=== PATIENT | female | born 1960 | race Caucasian/White ===

== ENCOUNTER 2022-09-05 10:43 | Day surgery (SDC) | payer BC ==
--- NOTE | 2022-09-05 09:40 | HP ---
DATE OF SURGERY: 09/05/2022 HISTORY OF PRESENT ILLNESS: The patient is a 62-year-old with last colonoscopy in 2012 had a polyp in the past, had follow up for polyps. No bloody stool. No change in bowel movements. No new pain. Family history no colon cancer. History of colitis in the father. She is need of follow up screening colonoscopy. PAST MEDICAL HISTORY: Urinary tract infections in the past. PAST SURGICAL HISTORY: Laparoscopic cholecystectomy. MEDICATIONS: Fish oil, Pravastatin, vitamin D3, aspirin. ALLERGIES: NKDA. FAMILY HISTORY: No colon cancer. History of colitis in the father. SOCIAL HISTORY: No smoking or alcohol abuse. REVIEW OF SYSTEMS: Fourteen systems reviewed. No chest pain or palpitations. Other systems negative or noncontributory as above and per preadmission questionnaire. PHYSICAL EXAMINATION: Weight 130 pounds. BMI 20.36. GENERAL: No acute distress. HEENT: Sclerae nonicteric. NECK: No JVD. CHEST: Equal excursion, nonlabored breathing. CVS: Regular rate and rhythm. ABDOMEN: Soft, nontender. EXTREMITIES: No edema or cyanosis. NEURO: Alert, oriented, moving extremities symmetrically. RECTAL: Deferred timed to endoscopy exam. PSYCH: Appropriate mood and affect. SKIN: Dry. IMPRESSION: History of polyps, in need of follow up screening. I feel the patient is a candidate. Risks and benefits explained in detail, risk of bleeding or infection, risk of bowel injury or perforation, risk of missed or nondiagnosis or incomplete exam possibly requiring barium enema, other studies or procedures, general risk of anesthesia or sedation, risk of bowel prep but not limited to, consent obtained. Will proceed with outpatient follow up screening colonoscopy.
[~2022-09-05 10:43] MED LIST: Lactated Ringers 1,000 ML IV SCH
[2022-09-05] MEDS ORDERED: Lactated Ringers 1,000 ML IV ONE (10:44)
[2022-09-05] MEDS ORDERED: Xylocaine-Mpf 2% 5 Ml Vial ONE (12:23)
[2022-09-05] MEDS ORDERED: Versed 2 MG/2 ML Injection ONE (12:23)
[2022-09-05] MEDS ORDERED: DIPRIVAN 200 MG/20 ML IV ONE ×2 (12:23→12:39)
[2022-09-05 13:43] VITALS: BP 123/70; PULSE 67; O2SAT 98
--- NOTE | 2022-09-05 15:15 | OP ---
SURGERY DATE/TIME: 09/05/2022 1225 PREOPERATIVE DIAGNOSIS: History of polyps, need for follow up screening colonoscopy. POSTOPERATIVE DIAGNOSES: 1) ASA Class II. 2) Small early polyp versus hyperplastic lesion. 3) Mild diverticulosis. 4) Withdrawal time approximately nine minutes. PROCEDURES: 1) Colonoscopy to cecum. 2) Hot biopsy removal polypectomy early polyp versus hyperplastic lesion transverse colon. 3) Hot biopsy polypectomy small early polyp versus hyperplastic lesion sigmoid colon x2. SURGEON: Dr. Casey Fuller. ANESTHESIA: MAC. ESTIMATED BLOOD LOSS: Minimal. INDICATIONS: As noted above. Risks and benefits explained in detail but not limited to and consent obtained. DESCRIPTION OF PROCEDURE AND FINDINGS: The patient is taken to the endoscopy room. MAC anesthesia induced. After official time out and no disagreement with planned procedure, digital rectal exam did not reveal any rectal masses. Video colonoscope inserted and passed up through the somewhat tortuous sigmoid, descending, transverse and ascending colon. With the external pressure the scope was able to be passed around to the cecum. Appendiceal orifice and ileocecal valve well visualized and photo documented. Prep overall was good except a little bit of liquidy stool irrigated as clear as possible. The scope is carefully withdrawn over the next nine minutes stopping in the transverse colon. Small early polyp versus hyperplastic lesion versus hyperplasia mucosa was biopsied with hot biopsy forceps. Good hemostasis noted. Scope pulled out the left colon. She had a few small diverticula, mild diverticulosis. Scope pulled back in the sigmoid colon. A couple small very early polyp versus hyperplastic lesion removed with hot biopsy forceps hot biopsy polypectomy. Good hemostasis noted. Otherwise no signs of any other large polyps, masses or obstructing lesions. The patient tolerated the procedure well. The scope is withdrawn. There were no immediate complications.
== END 2022-09-05 13:54 | disposition home or self-care (01) ==
LOC: SDC 10:43
PROVIDERS: ATTEND Surgery
DX: Z09 Encounter for follow-up examination after completed treatment for conditions other than malignant neoplasm (principal); Z86.010 Personal history of colon polyps; K63.5 Polyp of colon; K57.30 Diverticulosis of large intestine without perforation or abscess without bleeding
CPT/HCPCS: J2250; J2704